=== PATIENT | male | born 2000 | race Caucasian/White ===

== ENCOUNTER 2020-02-06 01:28 | Observation (INO) ==
[2020-02-06] MEDS ORDERED: MoRPHine SULFATE 4 MG/ML 1 ML CARP\\VIAL IV STA (01:53)
[2020-02-06] MEDS ORDERED: ONDANSETRON INJ 2 MG/ML 2 ML VIAL IV STA (01:53)
[2020-02-06 02:16] LABS: Basophils # (auto) 0.01 K/uL (0-0.2); Basophils % (auto) 0.1 %; Eosinophils # (auto) 0.12 K/uL (0-0.5); Hematocrit (blood only) 42.9 % (42-52); Hemoglobin 14.5 g/dL (14.0-18.0); Immature Granulocytes # (auto) 0.02 K/uL (0.00-0.02); Immature Granulocytes % (auto) 0.2 %; Lymphocytes # (auto) 1.23 K/uL (1.2-3.4); Lymphocytes % (auto) 10.1 %; Mean Corpuscular Hemoglobin 28.8 pg (25-34); Mean Corpuscular Hgb Conc 33.8 g/dL (32-36); Mean Corpuscular Volume 85.3 fL (80-100); Mean Platelet Volume 9.6 fL (7.4-10.4); Monocytes # (auto) 0.76 K/uL (0.11-0.59); Monocytes % (auto) 6.3 %; Neutrophils # (auto) 10.02 K/uL (1.4-6.5); Neutrophils % (auto) 82.3 %; Platelet Count 221 K/uL (130-400); RDW Coefficient of Variation 12.9 % (11.5-14.5); Red Blood Count 5.03 M/uL (4.7-6.1); White Blood Count 12.16 K/uL (4.8-10.8)
[2020-02-06 02:28] LABS: Albumin Level 4.1 gm/dl (3.4-5.0); BUN Creatinine Ratio 11.9 (10-20); Creatinine Clr Calc Pharmacy 98.6 ml/min; Est GFR (African American) 85.3; Est GFR (Non-African American) 73.6; Potassium 4.1 mmol/L (3.5-5.1)
[2020-02-06 02:30] LABS: Albumin Globulin Ratio 1.2 (0.9-2); Bilirubin,Total 0.6 mg/dl (0.2-1); Globulin 3.4 gm/dl (2.5-4.0); Total Protein 7.5 gm/dl (6.4-8.2)
[2020-02-06] MEDS ORDERED: OPTIRAY 320 125ml IV ONE (03:01)
[2020-02-06 03:30] LABS: INR 1.1 (0.9-1.1); Partial Thromboplastin Ratio 0.9; Partial Thromboplastin Time 25.4 Seconds (21.0-31.0)
[2020-02-06] MEDS ORDERED: HEPARIN SODIUM/DEXTROSE 25,000 UNITS/500 ML BAG IV SCH (03:45)
[2020-02-06] MEDS ORDERED: HEPARIN SOD (PORCINE) 1000 UNIT/ML 10 ML VIAL ONE (04:00)
--- NOTE | 2020-02-06 04:28 | Emergency Department Note ---
History of Present Illness General Chief complaint: Flu Like Symptoms Stated complaint: CHILLS,BODY ACHES Time Seen by Provider: 02/06/20 01:43 History of Present Illness Maximum Pain Intensity: 4 This 19-year-old presents to the ER complaining of left leg pain and swelling for the past few days Location: Left leg Quality: Swollen Severity: Painful Duration: Past few days Timing: Started few days ago Context: Patient was concerned and came in Modifying factors: better with rest; worse with activity Patient went to urgent care was given steroids and Flexeril. The swelling got worse and patient came here. Patient denies chest pain, dyspnea, fevers, flulike illness, abdominal pain, IV drug abuse, loss of bowel bladder control, saddle anesthesia. No trauma to the leg. Home Medications Home Medications Medication Instructions Recorded Confirmed Type prednisone See Rx Instructions .ROUTE .COMPLEX 02/06/20 02/06/20 History Allergies Allergy/AdvReac Type Severity Reaction Status Date / Time No Known Allergies Allergy Unverified 02/06/20 02:09 Past Med/Surg History Medical History No acute medical problems Surgical History No pertinent past surgical history Social History Smoking Status: Never smoker Preferred Language: Northern Irish Feels Safe at Home: Yes Review of Systems A total of 10 systems reviewed and were otherwise negative Physical Exam Vital Signs Vital Signs - 24 hr 02/06/20 01:32 02/06/20 02:07 02/06/20 03:30 Temperature 36.9 C Temperature Source Oral Pulse Rate 106 H Pulse Rate [Finger] 90 89 Respiratory Rate 16 18 18 Blood Pressure 97/58 L Blood Pressure [Left Arm] 143/66 H 127/73 Blood Pressure Mean 71 Blood Pressure Mean [Left Arm] 91 91 Pulse Oximetry 98 94 96 Oxygen Delivery Method Room Air Room Air Room Air Sepsis Recent Fever Within 48 Hours No Sepsis New/Unexplained Change in Mental Status No Sepsis Action Taken by Nursing No Action Required VITALS: Vitals are noted on the nurse's note and reviewed by myself. Vital signs stable. GENERAL: Pleasant male, in no acute distress, nondiaphoretic, well-developed well-nourished. SKIN: Capillary reflex less than 2 seconds. HEENT: Normocephalic. PERRLA. EOMI. Nares patent. Mucous membranes moist. Neck is supple without nuchal rigidity. HEART: Regular rate and rhythm without murmurs gallops or rubs. LUNGS: Clear to auscultation bilaterally without wheezes, rales or rhonchi. No retractions or accessory muscle use. ABDOMEN: Positive bowel sounds x 4. Normal tympanic percussion. Soft, nontender, without masses or organomegaly. Bradshaw sign negative. No guarding or rebound tenderness. MUSCULOSKELETAL: No gross musculoskeletal defects. Left leg edematous. Pedal pulses +2 equal and present bilaterally. no thoracic or lumbar tenderness on e xam. NEURO: Patient was alert and oriented to person place and time. Normal sensation to light and sharp touch. No focal neurological deficits. Course Administered Medications Heparin Sodium/Dextrose (Heparin Sodium/Dextrose) 25,000 units in 500 mls @ 29 mls/hr IV .[id number] [facility]; Protocol Stop: 03/07/20 03:44 Last Admin: 02/06/20 04:05 Dose: 1,450 units/hr, 29 mls/hr Documented by: [id number] Cosigned by: [id number] Discontinued Medications Heparin Sodium (Porcine) (Heparin Sod (Porcine) 1000 Unit/Ml 10 Ml Vial) Confirm Administered Dose 10,000 units .ROUTE .STK-MED ONE Stop: 02/06/20 04:01 Last Admin: 02/06/20 04:04 Dose: 6,000 units Documented by: [id number] Cosigned by: [id number] Heparin Sodium/Dextrose (Heparin Iv Standard With Bolus) 1 ea IV NOW STA; Pr otocol Stop: 02/06/20 03:43 Last Admin: 02/06/20 04:05 Dose: Not Given Documented by: [id number] Ioversol (Optiray 320 125ml) 120 ml IV ONCE ONE Stop: 02/06/20 03:02 Last Admin: 02/06/20 03:01 Dose: 120 ml Documented by: [id number] Morphine Sulfate (Morphine Sulfate 4 Mg/Ml 1 Ml Carp\Vial) 4 mg IV NOW STA Stop: 02/06/20 01:54 Last Admin: 02/06/20 02:06 Dose: 4 mg Documented by: [id number] Ondansetron HCl (Ondansetron Inj 2 Mg/Ml 2 Ml Vial) 4 mg IV NOW STA Stop: 02/06/20 01:54 Last Admin: 02/06/20 02:06 Dose: 4 mg Documented by: [id number] Medical Decision Making Laboratory Data Result diagrams: 02/06/20 01:58 02/06/20 01:58 Lab Results 02/06/20 02/06/20 02/06/20 Range/Units 01:58 01:58 01:58 WBC 12.16 H (4.8-10.8) K/uL RBC 5.03 (4.7-6.1) M/uL Hgb 14.5 (14.0-18.0) g/dL Hct 42.9 (42-52) % MCV 85.3 (80-100) fL MCH 28.8 (25-34) pg MCHC 33.8 (32-36) g/dL RDW Std Deviation 40.0 (36.4-46.3) fL RDW Coeff of Dimas 12.9 (11.5-14.5) % Plt Count 221 (130-400) K/uL MPV 9.6 (7.4-10.4) fL Immature Gran % (Auto) 0.2 % Neut % (Auto) 82.3 % Lymph % (Auto) 10.1 % [place] % (Auto) 6.3 % Eos % (Auto) 1.0 % Baso % (Auto) 0.1 % Neut # (Auto) 10.02 H (1.4-6.5) K/uL Lymph # (Auto) 1.23 (1.2-3.4) K/uL [place] # (Auto) 0.76 H (0.11-0.59) K/uL Eos # (Auto) 0.12 (0-0.5) K/uL Baso # (Auto) 0.01 (0-0.2) K/uL Immature Gran # (Auto) 0.02 (0.00-0.02) K/uL PT Cancelled INR Cancelled APTT Cancelled PTT Ratio Cancelled Sodium 140 (136-145) mmol/L Potassium 4.1 (3.5-5.1) mmol/L Chloride 108 H (98-107) mmol/L Carbon Dioxide 28 (21-32) mmol/L Anion Gap 4.0 (3-11) BUN 16 (7-18) mg/dl Creatinine 1.38 (0.6-1.4) mg/dl Est Cr Clr Drug Dosing 98.6 ml/min Est GFR ( Amer) 85.3 Est GFR (Non-Af Amer) 73.6 BUN/Creatinine Ratio 11.9 (10-20) Glucose 148 H (70-99) mg/dl Calcium 9.0 (8.5-10.1) mg/dl Total Bilirubin 0.6 (0.2-1) mg/dl AST 16 (15-37) U/L ALT 23 (12-78) U/L Alkaline Phosphatase 68 (45-117) U/L Total Creatine Kinase 161 (39-308) U/L Total Protein 7.5 (6.4-8.2) gm/dl Albumin 4.1 (3.4-5.0) gm/dl Globulin 3.4 (2.5-4.0) gm/dl Albumin/Globulin Ratio 1.2 (0.9-2) 02/06/20 Range/Units 03:09 WBC (4.8-10.8) K/uL RBC (4.7-6.1) M/uL Hgb (14.0-18.0) g/dL Hct (42-52) % MCV (80-100) fL MCH (25-34) pg MCHC (32-36) g/dL RDW Std Deviation (36.4-46.3) fL RDW Coeff of Dimas (11.5-14.5) % Plt Count (130-400) K/uL MPV (7.4-10.4) fL Immature Gran % (Auto) % Neut % (Auto) % Lymph % (Auto) % [place] % (Auto) % Eos % (Auto) % Baso % (Auto) % Neut # (Auto) (1.4-6.5) K/uL Lymph # (Auto) (1.2-3.4) K/uL [place] # (Auto) (0.11-0.59) K/uL Eos # (Auto) (0-0.5) K/uL Baso # (Auto) (0-0.2) K/uL Immature Gran # (Auto) (0.00-0.02) K/uL PT 12.0 INR 1.1 APTT 25.4 PTT Ratio 0.9 Sodium (136-145) mmol/L Potassium (3.5-5.1) mmol/L Chloride (98-107) mmol/L Carbon Dioxide (21-32) mmol/L Anion Gap (3-11) BUN (7-18) mg/dl Creatinine (0.6-1.4) mg/dl Est Cr Clr Drug Dosing ml/min Est GFR ( Amer) Est GFR (Non-Af Amer) BUN/Creatinine Ratio (10-20) Glucose (70-99) mg/dl Calcium (8.5-10.1) mg/dl Total Bilirubin (0.2-1) mg/dl AST (15-37) U/L ALT (12-78) U/L Alkaline Phosphatase (45-117) U/L Total Creatine Kinase (39-308) U/L Total Protein (6.4-8.2) gm/dl Albumin (3.4-5.0) gm/dl Globulin (2.5-4.0) gm/dl Albumin/Globulin Ratio (0.9-2) Imaging Data Attestation: I personally reviewed and interpreted this imaging study as follows: Prescription Drug Monitoring [place] Drug Monitoring [place] reviewed and no issues identified MDM Narrative Prior records/ancillary studies reviewed and summarized above. Nursing notes reviewed. Additional history obtained from family. The patient's history was concerning for leg swelling. Differential diagnosis: Etiologies such as DVT, trauma, metabolic, infection, hypo/hyperglycemia, electrolyte abnormalities, cardiac sources, intracerebral event, toxicologic, neurologic, as well as others were entertained. Physical examination: As above. ER treatment provided: IV Lock An order was placed for continuous cardiac monitoring. The monitor shows a rate of 60-100 with a sinus rhythm. Heparin with bolus On reassessment the patient felt better. Diagnostics interpretation by me: The labs revealed stable H&H. Hypercoagulable work-up was ordered. Imaging studies: US VENOUS LEFT LOWER EXTREMITY: Extensive occlusive acute DVT of the left common femoral vein, profunda femoral vein, femoral vein, popliteal vein, and calf veins. Radiologist: Parish Gibbs M.D. CTA CHEST: Acute bilateral segmental and subsegmental pulmonary emboli involving the bilateral upper and bilateral lower lobes. No saddle embolus. No right ventricular strain. Clear lungs. No pleural effusion or pneumothorax. Calcified granuloma left lower lobe. Normal heart size. No pericardial effusion. No thoracic aortic aneurysm. Small amount of residual thymic tissue in the anterior mediastinum. No acute osseous findings. Radiologist: Parish Gibbs M.D. CT ABDOMEN & PELVIS With Contrast: Comparison: Left lower extremity venous ultrasound 02/06/20. Extensive acute DVT extending from the IVC bifurcation through the left common iliac and external iliac veins and into the left lower extremity veins. Pattern of DVT raises possibility of May Thurner syndrome (compression of the left common iliac vein by the right common iliac artery). Liver, gallbladder, spleen, pancreas, adrenal glands, and kidneys are unremarkable. Normal appendix. No bowel obstruction or inflammation. Urinary bladder and prostate are normal. No acute osseous findings. Radiologist: Parish Gibbs M.D. Consultation: A consultation was placed with Dr. Camacho from vascular and recommends heparin with bolus and medical admission. I spoke to Dr. Klein, the hospitalist. The case was discussed and diagnostics were reviewed. The patient was evaluated in the ER for further treatment. Exam and history seem consistent with extensive DVT with PEs. Patient had no chest pain or shortness of breath. He was neurovascularly and neurologically intact. He will start on heparin. Medicine and vascular were consulted. Patient is agreeable treatment plan of admission. I spoke to the mother and she has a bleeding disorder of MTH FR. This test was ordered. By the evaluation outlined above emergent etiologies such as infection, electrolyte abnormalities, cardiac sources, intracerebral event, toxologic, neurologic, abnormalities blood glucose, metabolic, as well as others were deemed relatively unlikely. The pt informed about the findings as listed above. All questions were answered and pleased with the treatment. The chart was completed utilizing [employer] voice recognition software. Grammatical errors, random word insertions, pronoun errors, and incomplete sentences are an occassional consequence of this system due to software limitations, ambient noise, and hardware issues. Any formal questions or concerns about the content, text, or information contained within the body of this dictation should be directly addressed to the physician preschool assistant director for clarification. Impression & Plan Pulmonary embolism, DVT (deep venous thrombosis) Discharge Plan Visit Data Chief Complaint: Flu Like Symptoms Stated Complaint: CHILLS,BODY ACHES ED Provider: Teena Arboleda ED Midlevel Provider: Fauzia Álvarez Discharge Problem: Pulmonary embolism, DVT (deep venous thrombosis) Patient Disposition: Admitted As Inpatient Condition: Good Forms Stand Alone Forms: On-Q-ity Prescriptions Prescriptions: No Action prednisone 10 mg Tablets,Dose Pack See Rx Instructions .ROUTE .COMPLEX RF: 0 Referrals [facility] [Primary Care Provider] -
--- NOTE | 2020-02-06 04:58 | History & Physical Report ---
Date of Service February 06, 2020 Assessment & Plan (1) Pulmonary embolism: Laurent is a 19yo with PMHx of constipation who presents with progressive LLE swelling and was found to have extensive DVTs with associated bilateral pulmonary emboli. DVTs/PEs -Pt with rapidly progressive LLE swelling -Denies any respiratory symptoms except for mild cough -Venous dopplers show "extensive occlusive acute DVT of L common femoral vein, profunda femoral vein, femoral vein, popliteal vein and calf veins" -CTA showed "bilateral segmental and subsegmental PE including the bilateral upper and bilateral lower lobes, no saddle embolus" -hypercoaguable workup (including homocysteine level given family Hx of MTHFR gene) started by ED, results pending. -continue heparin drip for anticoagulation -consult placed to vascular surgery for possible surgical intervention -NPO for possible procedure -consider hematology/Dr. Au consultation for half-way anticoagulation recommendations Constipation -Miralax ordered PRN FEN/GI: NPO for possible procedure DVT prophylaxis: on heparin drip CODE STATUS: Full Dispo: PCU/tele for continued monitoring (2) DVT (deep venous thrombosis): History of Present Illness Primary Care Provider: [facility] Laurent is a 19yo with PMHx of constipation who presents with progressive LLE swelling and was found to have extensive DVTs with associated bilateral pulmonary emboli. He states that on 2 days ago he developed very bad back pain. Then within the last day he has noticed progressive swelling of his left lower extremity up to his groin. [facility] to [facility] where they prescribed him a muscle relaxant and prednisone. He was not satisfied with their diagnosis and presented to the ED. He denies any respiratory symptoms such as chest pain or SOB. States he is very active, has even hiked [place] recently though that was a bit more difficult for him. States he has a slight cough however. States mom, aunt and grandma and distant cousin all have the MTHFR gene. Believes that mom has had PEs in the past. Not a cigarette smoker, does not vape but does admit to smoking marijuana perio dically. Social drinker. Is a student at [employer], education and social studies major. Lives with uncle in [place] when he is here for school. Allergies Allergy/AdvReac Type Severity Reaction Status Date / Time No Known Allergies Allergy Unverified 02/06/20 02:09 Home Medications Home Medications Medication Instructions Recorded Confirmed Type rivaroxaban [Xarelto] 15 mg PO BID 21 Days #41 tab 02/06/20 Rx Past Med/Surg History Medical History No acute medical problems Surgical History No pertinent past surgical history Social History Smoking Status: Never smoker Second Hand Exposure: Yes; Do You Dip or Chew Tobacco: No; Hx Alcohol Use: Yes Alcohol type: beer and hard liquor Hx Substance Use: No Preferred Language: Sami Commercial Intern Required: No Beliefs That Will Affect Care: None Current Living Situation: Family Current Living Situation Comment: lives with uncle Feels Safe at Home: Yes Safety Concerns: Feels Safe At This Time Review of Systems Constitutional: no fever, no chills and no fatigue Eyes: no worsening vision Ear, Nose, Mouth, Throat: no nasal congestion, no sore throat and no dysphagia Respiratory: + cough; no dyspnea Cardiovascular: + edema and + calf pain; no chest pain, no dyspnea and no palpitations Gastrointestinal: no abdominal pain, no nausea and no vomiting Genitourinary: no dysuria Musculoskeletal: no body aches Physical Exam Physical Exam: General: Alert, oriented. No acute distress laying in bed Skin: some erythema to LLE Psych: Appropriate mood and affect Neuro: No gross deficits HEENT: NC/AT Chest: Nontender to palpation. CV: RRR, Normal s1, s2. No murmurs appreciated Resp: Breath sounds clear bilaterally but decreased, no increased effort of breathing. No crackles/rhonchi/rales. Abdomen: Soft, nontender, nondistended. No guarding. No organomegaly appreciated. Extremities: LLE with swelling and redness extending from foot to the groin. Results & Data Results & Data ([facility]) Vital Signs (Past 12 Hours) Vital Signs Temp Pulse Pulse Resp BP BP Pulse Ox 02/06/20 04:47 71 18 115/69 96 02/06/20 03:30 89 18 127/73 96 02/06/20 02:07 90 18 143/66 H 94 02/06/20 01:32 36.9 C 106 H 16 97/58 L 98 Code Status & VTE Plan VTE Prophylaxis Plan VTE Prophylaxis will be ordered: Yes Supervising Physician Co-Signing Physician Notes Attending addendum: I have physically seen this patient, have supervised the medical residents activities, and agree with the H&P unless as otherwise noted. Assessment and Plan: DVT left lower extremity, involving pelvic veins and lower IVC/bilateral pulmonary emboli- Radiology brings up the concern regarding possibility of May Thurner Syndrome, due to extensive nature of clot and extending into the IVC. May Thurner syndrome involves compression by common iliac artery, compressing the left common iliac vein. Emergency department is spoken with vascular surgery Dr. Camacho, who will see patient tomorrow. Heparin drip standard protocol with bolus begun and will be continued. Family history of MTHFR, which itself is not of concern regarding hypercoagulability, but does predispose to elevated homocystine. Hypercoagulable work-up is already been ordered by the emergency department. Relative bedrest for the first 24 hours. Remaining orders and notations as noted. Resident Activity Tracking Resident Involvement: Resident Care Provided Care Provided: Adult Hospital Medicine (1) Pulmonary embolism Acute cor pulmonale presence: unspecified Chronicity: acute Pulmonary embolism type: unspecified Qualified Code(s): I26.99 - Other pulmonary embolism without acute cor pulmonale
[2020-02-06] MEDS ORDERED: MoRPHine SULFATE 2 MG/ML CARP IV PRN (05:19)
[2020-02-06] MEDS ORDERED: KETOROLAC TROMETHAMINE 15 MG/ML VIAL IV PRN (05:19)
[2020-02-06] MEDS ORDERED: POLYETHYLENE (MIRALAX) 17 GM PACK PO PRN (05:19)
[2020-02-06] MEDS ORDERED: INFLUENZA VIRUS QUAD VACCINE 0.5 ML SYR IM ONE (05:29)
[2020-02-06] MEDS ORDERED: INFLUENZA ADMINISTRATION CHARGE ONE (05:29)
[2020-02-06] MEDS: ACETAMINOPHEN 1000 MG/100 ML IV IV SCH ×2 (06:17→13:59)
--- NOTE | 2020-02-06 07:05 | Ultrasound Report ---
ULTRASOUND LEFT LOWER EXTREMITY VENOUS CLINICAL HISTORY: Left leg swelling. COMPARISON STUDY: No priors. TECHNIQUE: Real-time, grayscale, and color Doppler sonography of the deep veins of the left lower ext remity was performed from the inguinal crease to the calf. Compression and augmentation were utilized . FINDINGS: There is extensive occlusive deep venous thrombosis which extends from the common femoral v ein into the calf. Superficial venous thrombus is seen within the greater saphenous vein and the prof unda femoris vein at the junction with the common femoral vein are clear. IMPRESSION: Extensive and occlusive left lower extremity deep venous thrombosis as above. ACT 112: Negative or not required by law. Electronically signed by: Olivier Jones M.D. 02/06/2020 7:04 AM
--- NOTE | 2020-02-06 07:30 | CT Scan Report ---
CT ANGIOGRAM OF THE CHEST; CT SCAN OF THE ABDOMEN AND PELVIS WITH IV CONTRAST CLINICAL HISTORY: Deep venous thrombosis. Back pain. Lower extremity edema. COMPARISON STUDY: Left lower extremity venous ultrasound dated 02/06/2020. TECHNIQUE: Following the IV administration of 120 of Optiray 320, CT angiogram of the chest is perfor med from the upper abdomen to the thoracic inlet utilizing the pulmonary embolus protocol. Images are reviewed in the axial, sagittal, coronal planes. 3-D MIPS images are created and assessed. Subsequen tly, CT scan of the abdomen and pelvis was performed from the lung bases to the proximal femora. Imag es are reviewed in the axial, sagittal, and coronal planes. IV contrast was administered without comp lication. A dose lowering technique was utilized adhering to the principles of ALARA. CT DOSE: 1193.56 mGy.cm FINDINGS: CHEST: Thyroid: Imaged portions of the thyroid gland are normal in size and attenuation. Thoracic aorta: The thoracic aorta is normal in caliber and demonstrates standard 3-vessel arch anato my. No dissection is seen. Pulmonary vasculature: The pulmonary trunk is normal in caliber. There is a small pulmonary embolus w ithin the distal left main pulmonary artery. There is also a small pulmonary embolus within the right lower lobe pulmonary artery. There are segmental and subsegmental pulmonary emboli within branches o f the right and left lower lobes. There are also likely segmental/subsegmental pulmonary emboli in th e left upper lobe. Evaluation of the peripheral branches is significantly degraded by motion artifact , especially in the upper lobes. Heart: The heart is normal in size and configuration, and without pericardial effusion. Lungs and pleural spaces: Evaluation of the lung parenchyma is modestly degraded by motion artifact. There is no airspace consolidation, pleural effusion, or pneumothorax. Calcified granuloma is noted i n the left lower lobe. The trachea and central airways are clear. Mediastinum: Minimal residual thymic tissue is seen in the anterior mediastinum. There is no mediasti nal lymphadenopathy. Giulia: Clear. Axillae: There is no axillary lymphadenopathy. Bony thorax: No lytic or blastic lesions are identified. ABDOMEN AND PELVIS: Liver: The contrast-enhanced liver is normal in size, contour, and attenuation. There is no intrahepa tic or ductal dilatation. The hepatic veins and portal veins are patent. Gallbladder: Unremarkable. Spleen: Normal in size and attenuation. Pancreas: Unremarkable. Adrenal glands: Unremarkable. Kidneys: The contrast enhanced kidneys are normal in size and without hydronephrosis. The kidneys enh ance symmetrically. Abdominal vasculature: The abdominal aorta is normal in course and caliber. There is extensive deep v enous thrombosis identified in the left lower extremity and pelvis. This extends from the partially i leigh superficial femoral vein, throughout the left iliac veins, and into the lower IVC. Mild inflamm atory stranding is seen around the left pelvic veins. The right pelvic veins appear patent. Bowel: There is no bowel obstruction. The appendix is well-visualized and normal. Peritoneum: There is no intraperitoneal free air or abdominal ascites. There is a small fat-containin g umbilical hernia. Lymphadenopathy: None. Pelvic viscera: The bladder, prostate, and seminal vesicles are normal as visualized. Skeletal structures: No lytic or blastic lesions are seen. IMPRESSION: 1. Bilateral pulmonary emboli as above. 2. There is no airspace consolidation or pleural effusion. 3. Extensive deep venous thrombosis as above which extends from the left lower extremity in the pelvi c veins and lower IVC. There is mild surrounding inflammation. Although not specific, the pattern of deep venous thrombosis could potentially be seen in May Thurner syndrome. 4. Additional findings as above. ACT 112: Negative or not required by law. Electronically signed by: Olivier Jones M.D. 02/06/2020 7:29 AM
[2020-02-06 10:30] LABS: Partial Thromboplastin Ratio 1.4; Partial Thromboplastin Time 40.2 Seconds (21.0-31.0)
[2020-02-06] MEDS ORDERED: HEPARIN IV BOLUS 6,000 UNITS in SYRINGE 0 ML IV ONE (11:15)
[2020-02-06] MEDS ORDERED: RIVAROXABAN 15 MG TAB PO STA (13:10)
--- NOTE | 2020-02-06 13:23 | Discharge Summary ---
Date of Service February 06, 2020 Admission HPI Per Admitting Provider Laurent is a 19yo with PMHx of constipation who presents with progressive LLE swelling and was found to have extensive DVTs with associated bilateral pulmonary emboli. He states that on 2 days ago he developed very bad back pain. Then within the last day he has noticed progressive swelling of his left lower extremity up to his groin. He went to [facility] where they prescribed him a muscle relaxant and prednisone. He was not satisfied with their diagnosis and presented to the ED. He denies any respiratory symptoms such as chest pain or SOB. States he is very active, has even hiked [place] [place] recently though that was a bit more difficult for him. States he has a slight cough however. States mom, aunt and grandma and distant cousin all have the MTHFR gene. Believes that mom has had PEs in the past. Not a cigarette smoker, does not vape but does admit to smoking marijuana periodically. Social drinker. 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 Lives with uncle in [place] when he is here for school. Admission Exam Per Admitting Provider Physical Exam: General: Alert, oriented. No acute distress laying in bed Skin: some erythema to LLE Psych: Appropriate mood and affect Neuro: No gross deficits HEENT: NC/AT Chest: Nontender to palpation. CV: RRR, Normal s1, s2. No murmurs appreciated Resp: Breath sounds clear bilaterally but decreased, no increased effort of breathing. No crackles/rhonchi/rales. Abdomen: Soft, nontender, nondistended. No guarding. No organomegaly appreciated. Extremities: LLE with swelling and redness extending from foot to the groin. Principal Diagnosis VTE Discharge Exam Constitutional well developed and well nourished; no acute distress Respiratory normal respiratory effort, lungs clear to auscultation Cardiovascular RRR, no murmur, no edema Gastrointestinal (Abdomen) normal bowel sounds, soft, nontender, no hepatosplenomegaly Musculoskeletal L leg swelling with erythema from the level of the ankle to the groin, no tenderness to palpation. No calf tenderness Discharge Data Allergies Allergy/AdvReac Type Severity Reaction Status Date / Time No Known Allergies Allergy Unverified 02/06/20 02:09 Consultations 02/06/20 03:29 ED Decision to Admit Stat Ordered Studies 02/06/20 01:53 US venous doppler LE LT Urgent 02/06/20 02:26 CT abd pelvis IV con only Urgent CT angio chest PE protocol Urgent Hospital Course (1) Pulmonary embolism: Laurent is a 19yo with PMHx of constipation who presents with progressive LLE swelling and was found to have extensive DVTs with associated bilateral pulmonary emboli. DVTs/PEs -Pt with rapidly progressive LLE swelling -Venous dopplers show "extensive occlusive acute DVT of L common femoral vein, profunda femoral vein, femoral vein, popliteal vein and calf veins" -CTA showed "bilateral segmental and subsegmental PE including the bilateral upper and bilateral lower lobes, no saddle embolus" -hypercoagulable workup (including homocysteine level given family Hx of MTHFR gene) started by ED, results pending. -Discussed with patient about calling the hospital if he does not recieve results in 3-4 weeks. -Initially started on heparin drip, transitioned to Xarelto 15mg BID x21 days and then 20mg daily after -Patient will likely need follow up with hematology in the outpatient setting. Constipation -Miralax ordered PRN (2) DVT (deep venous thrombosis): Total Time Total Time Spent Total Time Spent (In Minutes): >30 Discharge Plan Discharge Items Patient Disposition: Home - Self-Care Reason For Visit: DVTs, PEs Discharge Diagnosis: DVT and B/L PE's Condition on Discharge: Good Activity: Per Instructions section Non-emergency contact: Primary Care Provider Call non-emergency contact if: you have any medication questions and your symptoms worsen Follow-up/Referrals: [place] [Primary Care Provider] - Diet: Regular Addtl Attending Provider Instructions: Mr. Rodney, It was our pleasure caring for you at [facility] from 02/04- 02/06/20 for your DVTs and bilateral PE's. Please see below for a summary of your care and future instructions. DVT/PE -Noted on Doppler study and Abdominal Pelvis CT scan were extensive deep venous thrombosis extending from your left lower extremity to your pelvic veins and lower inferior vena cava. Pulmonary emboli (blood clots in your lungs) were also noted. Your cause for clotting is still unknown at this point in time as you denied any recent injury, sedentary lifestyle, or clotting related disorders for yourself. You did note that your mother had the MTHFR gene which we are testing you for. You also had a hypercoagulability panel drawn. Someone from the hospital should call you to discuss with you the results, if you do not hear back in the next 3-4 weeks please call the hospital for the results. -You were also treated with IV Heparin (blood thinner) while inpatient. -You were given one dose of Xarelto (blood thinner) by mouth prior to your discharge. Please continue this after discharge as noted: -Xarelto 15mg by mouth twice a day for 21 days, then 20mg daily until resolution of clots. -Please follow up with your PCP in the next week. -Please also discuss with your PCP about this visit as due to the unknown and unprovoked nature of your blood clot you may have to be on anticoagulation for life. -Your PCP may suggest you see a Chemical Laboratory Assistant in regards to your clotting disorder. -If you have symptoms of worsening shortness of breath, worsening leg swelling, chest pain, chest pressure, blood in vomit or stool, please return to the ED for reevaluation. Pending Studies at Discharge: Yes Studies:: Pending hypercoag labs Stand-Alone Forms: [facility], Smoking Cessation Medications and DC Order Prescriptions: New Xarelto 15 mg tablet 15 mg PO BID 21 Days Qty: 41 RF: 0 Discontinued prednisone 10 mg Tablets,Dose Pack See Rx Instructions .ROUTE .COMPLEX RF: 0 Discharge Orders: Discharge Order (Routine); Ordered 02/06/20 Ordered By: nAgel [place]/Other Patient Handouts: Pulmonary Embolism, Embolism Pulmonary Dc Admission Data Admit Date/Time: 02/06/20 04:43 Attending Provider: Gustavo Arana Admit Provider: Roxana Loyola Primary Care Provider: [facility] Other Providers: David Anthony Other Interventions: Discharge Summary Assessment (RN) Last Done: 02/06/20 15:13 Supervising Physician Co-Signing Physician Notes I personally examined the patient and verified all argueta points of history and exam, discussed case, and agree with decision making with Dr Browne feeling better wants to go home breathing fine leg still swollen but not severely tender d/w vascular surgery does not appear surgery indicated at this time vitals noted nad heent nc at mmm breathing unlabored. leg swollen but not tense/red/etc VTE - DVT and PE. 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
[2020-02-06] MEDS ORDERED: ACETAMINOPHEN 1,000 MG/100 ML VIAL IV SCH (14:00)
--- NOTE | 2020-02-06 18:22 | Billing Data ---
Date of Service February 06, 2020 Coding Level of Care Code 67976 OBS Care - Level 3
--- NOTE | 2020-02-06 18:58 | Billing Data ---
Date of Service February 06, 2020 Coding Level of Care Code D/C Day Management >30 mins
[2020-02-10 20:41] LABS: Anti Cardiolipin Ab IgG <14 GPL; Anti Cardiolipin Ab IgM <12 MPL; Anti-Thrombin III Activity 109 % normal (80-135); B2 Glycoprotein IgG <9 SGU (<=20); B2 Glycoprotein IgM <9 SMU (<=20); PTT LA Screen 33 sec (<=40); Protein S Functional(Activity) 101 % (70-150)
== END 2020-02-06 15:35 | disposition home or self-care (01) ==
LOC: ED 01:28 → SUATTDRO 04:43 → INTOOBSV 04:43 → 2S 04:43